=== PATIENT | female | born 1995 | race African-American/Black ===

== ENCOUNTER 2017-03-16 14:59 | Emergency (ER) | payer BC ==
[~2017-03-16] VITALS: Ht 167.6 cm; Wt 74.8 kg
[2017-03-16 15:10] VITALS: BP 150/75
[2017-03-16 15:27] LABS: BILIRUBIN,URINE NEGATIVE (NEG); GLUCOSE,URINE NEGATIVE (NEG); NITRITE,URINE NEGATIVE (NEG); PROTEIN,URINE NEGATIVE (NEG-TRACE)
[2017-03-16] MEDS ORDERED: ACETAMINOPHEN 500 MG TABLET PO ONE (15:30)
--- NOTE | 2017-03-16 15:34 | PHYS DOC ---
Adult General Chief Complaint Chief Complaint: ABDOMINAL PAIN HPI HPI Patient is a 21 year old female who presents with complaint of lower abdominal pain. Patient states that she has had lower abdominal pain over the past 2 weeks. Patient states that she has noticed worsening symptoms over the past 3 days. The patient denies abnormal vaginal discharge however patient does express concern over possible sexually transmitted infection. The patient is currently sexually active with one sexual partner and has had unprotected sexual intercourse within the past week prior to symptoms. She states that she has not had any nausea, vomiting, vaginal discharge. Patient also is concerned about possible . Patient notes mild headache but no other associated symptoms with her abdominal pain. The patient states that the pain is localized just below her bellybutton and denies radiation of pain. Patient has had no associated fevers. Patient states that she has had similar symptoms when she had a bladder infection in the past. The patient does note that over the past 8 months she has been having irregular periods. Patient states that she had a D&C procedure in August 2016 and since her procedure she's had irregular periods. Patient notes that she had vaginal bleeding approximately one week ago that lasted only 2 days. Review of Systems Review of Systems Constitutional: Denies fever or chills [] Eyes: Denies change in visual acuity, redness, or eye pain [] HENT: Denies nasal congestion or sore throat [] Respiratory: Denies cough or shortness of breath [] Cardiovascular: Denies chest pain or edema [] GI: Abdominal pain, denies nausea, vomiting, bloody stools or diarrhea [] : Denies dysuria or hematuria [] Musculoskeletal: Denies back pain or joint pain [] Integument: Denies rash or skin lesions [] Neurologic: Headache, denies focal weakness or sensory changes [] Current Medications Current Medications Current Medications Medications (Trade) Dose Ordered Sig/[facility] Start Time Stop Time Status Last Admin Dose Admin Acetaminophen (Tylenol) 1,000 mg 1X ONCE 03/16/17 15:30 03/16/17 15:32 DC 03/16/17 15:43 1,000 MG Allergies Allergies Allergies Coded Allergies Type Severity Reaction Last Updated Verified No Known Drug Allergies 03/16/17 No Physical Exam Physical Exam Constitutional: Well developed, well nourished, no acute distress, non-toxic appearance. [] HENT: Normocephalic, atraumatic, bilateral external ears normal, oropharynx moist, no oral exudates, nose normal. [] Eyes: PERRLA, EOMI, conjunctiva normal, no discharge. [] Neck: Normal range of motion, no tenderness, supple, no stridor. [] Cardiovascular:Heart rate regular rhythm, no murmur [] Lungs & Thorax: Bilateral breath sounds clear to auscultation [] Abdomen: Bowel sounds normal, soft, mild suprapubic tenderness to palpation, no guarding or rebound tenderness, no masses, no pulsatile masses. Pelvic: Normal external exam, normal appearing vaginal mucus, no cervical motion tenderness, mild midline tenderness on bimanual exam, no adnexal tenderness [] Skin: Warm, dry, no erythema, no rash. [] Back: No tenderness, no CVA tenderness. [] Extremities: No tenderness, no cyanosis, no clubbing, ROM intact, no edema. [] Neurologic: Alert and oriented X 3, normal motor function, normal sensory function, no focal deficits noted. [] Current Patient Data Vital Signs Vital Signs Date Time Temp Pulse Resp B/P (MAP) Pulse Ox O2 Delivery O2 Flow Rate FiO2 03/16/17 15:10 98.4 20 150/75 (100) Room Air 98.4 Lab Values Laboratory Tests Test 03/16/17 14:20 03/16/17 15:10 POC Urine HCG, Qualitative Hcg negative (Negative) Urine Collection Type Unknown Urine Color Yellow Urine Clarity Clear Urine pH 7.0 Urine Specific [place] 1.020 Urine Protein Negative mg/dL (NEG-TRACE) Urine Glucose (UA) Negative mg/dL (NEG) Urine Ketones (Stick) Negative mg/dL (NEG) Urine Blood Negative (NEG) Urine Nitrite Negative (NEG) Urine Bilirubin Negative (NEG) Urine Urobilinogen Dipstick 1.0 mg/dL (0.2 mg/dL) Urine Leukocyte Esterase Negative (NEG) Urine RBC 0 /HPF (0-2) Urine WBC 1-4 /HPF (0-4) Urine Squamous Epithelial Cells Many /LPF Urine Bacteria Few /HPF (0-FEW) Urine Mucus Slight /LPF Microbiology 03/16/17 Wet Prep - Final, Complete EKG EKG Not performed [] Radiology/Procedures Radiology/Procedures Not performed [] Course & Med Decision Making Course & Med Decision Making Pertinent Labs and Imaging studies reviewed. (See chart for details) Patient's urinalysis and wet prep were unremarkable. The patient's abdomen is not consistent with an acute surgical belly and patient's symptoms do not appear consistent with ovarian torsion or other acute abdominal/pelvic process. I suspect that the patient's symptoms may be related to menstrual irregularity. I recommended that the patient follow-up with her [employer] in the next 5-7 days for reevaluation. Recommended return to emergency department for any worsening symptoms. Patient voiced understanding and in agreement with treatment plan. Dragon Disclaimer Dragon Disclaimer This electronic medical record was generated, in whole or in part, using a voice recognition dictation system. Departure Departure Impression: Primary Impression: Abdominal pain Disposition: HOME, SELF-CARE Condition: STABLE Referrals: NO PCP (PCP) Patient Instructions: Abdominal Pain, Women Additional Instructions: Follow-up in one week with your [employer] for reevaluation. Return to the emergency department for any worsening symptoms. Problem Qualifiers Primary Impression: Abdominal pain Abdominal location: lower abdomen, unspecified Qualified Codes: R10.30 - Lower abdominal pain, unspecified BEV BOYD MD Mar 16, 2017 15:34
[2017-03-16 15:35] LABS: BACTERIA,URINE FEW /HPF (0-FEW); RBC,URINE 0 /HPF (0-2); SQUAMOUS EPITHELIAL CELL,UR MANY /LPF
== END 2017-03-16 16:06 | disposition home or self-care (01) ==
LOC: ER 14:59
DX: R10.30 Lower abdominal pain, unspecified (principal); R51 Headache
CPT/HCPCS: 81001; 81025; 87491; 87591; 99284; Q0111

== ENCOUNTER 2017-05-12 17:42 | Emergency (ER) | payer BC ==
[2017-05-12 18:08] VITALS: BP 144/73
[2017-05-12] MEDS ORDERED: AMOX875T PO (19:01)
[2017-05-12] MEDS ORDERED: PRED50TA PO (19:01)
[2017-05-12] MEDS ORDERED: IBUP-1060 PO (19:01)
--- NOTE | 2017-05-12 19:01 | PHYS DOC ---
Past Medical History Past Medical History: No Pertinent History Past Surgical History: Other Additional Past Surgical Histo: DNC X2 Alcohol Use: None Drug Use: None Adult General Chief Complaint Chief Complaint: SORE THROAT HPI HPI Patient is a 21 year old female who presents with fever and sore throat for one day. Review of Systems Review of Systems Constitutional: fever Eyes: Denies change in visual acuity, redness, or eye pain [] HENT: sore throat []Denies nasal congestion Respiratory: Denies cough or shortness of breath [] Cardiovascular: No additional information not addressed in HPI [] GI: Denies abdominal pain, nausea, vomiting, bloody stools or diarrhea [] : Denies dysuria or hematuria [] Musculoskeletal: Denies back pain or joint pain [] Integument: Denies rash or skin lesions [] Neurologic: Denies headache, focal weakness or sensory changes [] Allergies Allergies Allergies Coded Allergies Type Severity Reaction Last Updated Verified No Known Drug Allergies 03/16/17 No Physical Exam Physical Exam Constitutional: Well developed, well nourished, no acute distress, non-toxic appearance. [] HENT: Normocephalic, atraumatic, bilateral external ears normal, oropharynx moist, no oral exudates, nose normal. [] Eyes: PERRLA, EOMI, conjunctiva normal, no discharge. [] Neck: Normal range of motion, no tenderness, supple, no stridor. [] Cardiovascular:Heart rate regular rhythm, no murmur [] Lungs & Thorax: Bilateral breath sounds clear to auscultation [] Abdomen: Bowel sounds normal, soft, no tenderness, no masses, no pulsatile masses. [] Skin: Warm, dry, no erythema, no rash. [] Back: No tenderness, no CVA tenderness. [] Extremities: No tenderness, no cyanosis, no clubbing, ROM intact, no edema. [] Neurologic: Alert and oriented X 3, normal motor function, normal sensory function, no focal deficits noted. [] Psychologic: Affect normal, judgement normal, mood normal. [] Current Patient Data Vital Signs Vital Signs Date Time Temp Pulse Resp B/P (MAP) Pulse Ox O2 Delivery O2 Flow Rate FiO2 05/12/17 18:08 99.4 106 18 98 Room Air 99.4 EKG EKG [] Radiology/Procedures Radiology/Procedures [] Course & Med Decision Making Course & Med Decision Making Pertinent Labs and Imaging studies reviewed. (See chart for details) Patient has acute tonsillitis. We discharged with amoxicillin for 10 days. Tylenol/Motrin for pain or fever. Discharged with prednisone as well. Follow-up with PCP in 1-2 weeks. Ninfa Disclaimer Dragon Disclaimer This electronic medical record was generated, in whole or in part, using a voice recognition dictation system. Departure Departure Impression: Primary Impression: Acute tonsillitis Additional Impression: Fever Disposition: HOME, SELF-CARE Condition: STABLE Referrals: NO PCP (PCP) follow up in one week Patient Instructions: Fever, Adult, [id number], Tonsillitis, [id number] Additional Instructions: You were seen for acute tonsillitis. Take the prescribed medicines as ordered ensure you complete your antibiotics. Use saltwater gargles as well. Follow-up with your doctor in 1-2 weeks. Scripts Ibuprofen (IBUPROFEN) 800 Mg Tablet 800 MG PO PRN Q6HRS Y for INFLAMMATION, #30 TAB Prov: LIBBY LYLES APRN 05/12/17 Prednisone (PREDNISONE) 50 Mg Tablet 1 TAB PO DAILY, #5 TAB Prov: LIBBY LYLES APRN 05/12/17 Amoxicillin (AMOXICILLIN) 875 Mg Tablet 1 TAB PO BID, #20 TAB Prov: LIBBY LYLES APRN 05/12/17 Problem Qualifiers Primary Impression: Acute tonsillitis Pharyngitis/tonsillitis etiology: unspecified etiology Qualified Codes: J03.90 - Acute tonsillitis, unspecified Additional Impression: Fever Fever type: unspecified Qualified Codes: R50.9 - Fever, unspecified LIBBY LYLES APRN May 12, 2017 19:01
[2017-05-13 07:40] LABS: NEGATIVE OBC STREP NEG; POSITIVE OBC STREP POS
== END 2017-05-12 19:03 | disposition home or self-care (01) ==
LOC: ER 17:42
DX: J03.90 Acute tonsillitis, unspecified (principal)
CPT/HCPCS: 87070; 87880; 99283

== ENCOUNTER 2017-06-24 21:49 | Emergency (ER) | payer BC ==
[~2017-06-24] VITALS: Ht 162.6 cm; Wt 74.8 kg
[~2017-06-24 21:49] MED LIST: AMOX875T PO; IBUP-1060 PO; PRED50TA PO
--- NOTE | 2017-06-24 22:03 | PHYS DOC ---
Past Medical History Past Medical History: No Pertinent History Past Surgical History: Other Additional Past Surgical Histo: D&C X2 (At [facility]) Additional Information: Non smoker Alcohol Use: None Drug Use: None Adult General Chief Complaint Chief Complaint: ABDOMINAL PAIN IN HPI HPI Patient is a 21 year old female who presents with vaginal bleeding and cramping. She is a G3, P0, LC0 who presents with vaginal bleeding and cramping. LMP that was normal was in April; she had 2 days of bleeding 05/28-. She performed a home test that was positive. No recent illness. No travel. No urinary complaints. Review of Systems Review of Systems Constitutional: Denies fever or chills Eyes: Denies change in visual acuity, redness, or eye pain HENT: Denies nasal congestion or sore throat Respiratory: Denies cough or shortness of breath Cardiovascular: No chest pain GI: Denies abdominal pain, nausea, vomiting, bloody stools or diarrhea : Denies dysuria or hematuria; POS vaginal bleeding; POS cramping; POS home test Musculoskeletal: Denies back pain or joint pain Integument: Denies rash or skin lesions Neurologic: Denies headache, focal weakness or sensory changes All other systems were reviewed and found to be within normal limits, except as documented in this note. Allergies Allergies Allergies Coded Allergies Type Severity Reaction Last Updated Verified No Known Drug Allergies 03/16/17 No Physical Exam Physical Exam Constitutional: Well developed, well nourished, no acute distress, non-toxic appearance. HENT: Normocephalic, atraumatic, bilateral external ears normal, oropharynx moist, no oral exudates, nose normal. Eyes: PERRLA, EOMI, conjunctiva normal, no discharge. Neck: Normal range of motion, no tenderness, supple, no stridor. Cardiovascular:Heart rate regular rhythm, no murmur Lungs & Thorax: Bilateral breath sounds clear to auscultation Abdomen: Bowel sounds normal, soft, no tenderness, no masses, no pulsatile masses. 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 No blood in vaginal vault. Whitish discharge (culture sent). No cervical motion tenderness; cervical os closed. Skin: Warm, dry, no erythema, no rash. Back: No tenderness, no CVA tenderness. Extremities: No tenderness, no cyanosis, no clubbing, ROM intact, no edema. Neurologic: Alert and oriented X 3, normal motor function, normal sensory function, no focal deficits noted. Psychologic: Affect normal, judgement normal, mood normal. Current Patient Data Vital Signs Vital Signs Date Time Temp Pulse Resp B/P (MAP) Pulse Ox O2 Delivery O2 Flow Rate FiO2 06/24/17 22:40 75 18 137/77 (97) 100 Room Air 06/24/17 21:53 98.9 98.9 Lab Values Laboratory Tests Test 06/24/17 21:52 06/24/17 21:58 06/24/17 22:15 Urine Collection Type Unknown Urine Color Yellow Urine Clarity Clear Urine pH 7.5 Urine Specific [place] 1.025 Urine Protein Negative mg/dL (NEG-TRACE) Urine Glucose (UA) Negative mg/dL (NEG) Urine Ketones (Stick) Negative mg/dL (NEG) Urine Blood Negative (NEG) Urine Nitrite Negative (NEG) Urine Bilirubin Negative (NEG) Urine Urobilinogen Dipstick 1.0 mg/dL (0.2 mg/dL) Urine Leukocyte Esterase Negative (NEG) Urine RBC 0 /HPF (0-2) Urine WBC 1-4 /HPF (0-4) Urine Squamous Epithelial Cells Many /LPF Urine Bacteria Moderate /HPF (0-FEW) Urine Mucus Marked /LPF POC Urine HCG, Qualitative Hcg positive (Negative) White Blood Count 9.7 x10^3/uL (4.0-11.0) Red Blood Count 4.18 x10^6/uL (3.50-5.40) Hemoglobin 11.7 g/dL (12.0-15.5) L Hematocrit 35.1 % (36.0-47.0) L Mean Corpuscular Volume 84 fL (79-100) Mean Corpuscular Hemoglobin 28 pg (25-35) Mean Corpuscular Hemoglobin Concent 33 g/dL (31-37) Red Cell Distribution Width 12.6 % (11.5-14.5) Platelet Count 185 x10^3/uL (140-400) Neutrophils (%) (Auto) 66 % (31-73) Lymphocytes (%) (Auto) 23 % (24-48) L Monocytes (%) (Auto) 6 % (0-9) Eosinophils (%) (Auto) 4 % (0-3) H Basophils (%) (Auto) 1 % (0-3) Neutrophils # (Auto) 6.4 x10^3uL (1.8-7.7) Lymphocytes # (Auto) 2.2 x10^3/uL (1.0-4.8) Monocytes # (Auto) 0.6 x10^3/uL (0.0-1.1) Eosinophils # (Auto) 0.4 x10^3/uL (0.0-0.7) Basophils # (Auto) 0.1 x10^3/uL (0.0-0.2) Maternal Serum HCG Beta Subunit 96 mIU/mL (0-5) H Laboratory Tests 06/24/17 22:15 Radiology/Procedures Radiology/Procedures [facility] [address] [place] [address] IMAGING REPORT Signed PATIENT: EMELYN SULTANA ACCOUNT: [id number] : 1995 LOCATION: ER AGE: 21 SEX: F EXAM STATUS: REG ER ORD. PHYSICIAN: SYED SHRESTHA MD REASON: vag bleeding in ; LMP Sept PROCEDURE: OB <14 WKS W/TV First trimester OB ultrasound dated 06/24/2017. No comparison available. Clinical indication: Vaginal bleeding for 12 hours. FINDINGS: Transabdominal and transvaginal imaging performed. No gestational sac or pole within the endometrial canal. Endometrial thickness is estimated at about 7 mm. Right ovary measures 2.8 x 1.6 x 1.6 cm. Left ovary measures 3.7 x 3.2 x 2.3 cm. Probable corpus luteum cyst at the left ovary measuring 2.4 cm. No adnexal mass or free fluid. IMPRESSION: 1. No evidence of gestational sac or pole at this time. Consider very early gestation or demise. Recommend correlation with beta-hCG values. 2. Probable corpus luteum cyst at the left ovary. 3. No free fluid. Electronically signed by: Jim Hodgson MD (06/24/2017 11:07 PM) [facility] DICTATED and SIGNED BY: JIM HODGSON MD DATE: 06/24/17 [id number] CC: SYED SHRESTHA MD; NO PCP ~ Course & Med Decision Making Course & Med Decision Making Evaluated Patient. No blood type documented here. Lab drawn and US ordered. At 2315 PM: US report back: concerning for demise. Referral to OB for follow up. Needs repeat Quant HCG and US. Blood type O positive. Differential includes: miscarriage; ectopic; ; dysfunctional uterine bleeding; UTI. I have spoken with the patient and/or caregivers. I have explained the patient' s condition, diagnosis and treatment plan based on the information available to me at this time. I have answered the patient's and/or caregiver's questions and addressed any concerns. The patient and/or caregivers have as good an understanding of the patient's diagnosis, condition and treatment plan as can be expected at this point. The patient's condition is stable and appropriate for discharge from the emergency department. The patient will pursue further outpatient evaluation with the primary care physician or other designated or consulting physician as outlined in the discharge instructions. The patient and/or caregivers are agreeable to this plan of care and follow-up instructions have been explained in detail. The patient and/or caregivers have received these instructions in written format and have expressed an understanding of the discharge instructions. The patient and/or caregivers are aware that any significant change in condition or worsening of symptoms should prompt an immediate return to this or the closest emergency department or a call to 911. Dragon Disclaimer Dragon Disclaimer This electronic medical record was generated, in whole or in part, using a voice recognition dictation system. Departure Departure Impression: Primary Impression: Threatened in first trimester Disposition: 01 HOME, SELF-CARE Referrals: NO PCP (PCP) SARA BALL Jr, MD Patient Instructions: Threatened Miscarriage Additional Instructions: YOUR QUANTITATIVE HCG WAS 96. YOUR US SHOWED NOTHING IN THE UTERUS. YOUR BLOOD TYPE IS O POSITIVE. YOU NEED A REPEAT HCG HORMONE LEVEL. CALL THE OB TO SET UP A FOLLOW UP APPT. SYED SHRESTHA MD Jun 24, 2017 22:03
[2017-06-24 22:22] LABS: BILIRUBIN,URINE NEGATIVE (NEG); GLUCOSE,URINE NEGATIVE (NEG); NITRITE,URINE NEGATIVE (NEG); PH,URINE 7.5; PROTEIN,URINE NEGATIVE (NEG-TRACE)
[2017-06-24 22:28] LABS: BASO # 0.1 x10^3/uL (0.0-0.2); BASO % 1 % (0-3); EOS % 4 % (0-3); HEMATOCRIT 35.1 % (36.0-47.0); HEMOGLOBIN 11.7 g/dL (12.0-15.5); LYMPH # 2.2 x10^3/uL (1.0-4.8); LYMPH % 23 % (24-48); MEAN CORPUSCULAR HEMOGLOBIN 28 pg (25-35); MEAN CORPUSCULAR HGB CONC 33 g/dL (31-37); MEAN CORPUSCULAR VOLUME 84 fL (79-100); MONO % 6 % (0-9); NEUT % 66 % (31-73); PLATELET COUNT 185 x10^3/uL (140-400); RED BLOOD COUNT 4.18 x10^6/uL (3.50-5.40); RED CELL DISTRIBUTION WIDTH 12.6 % (11.5-14.5); WHITE BLOOD COUNT 9.7 x10^3/uL (4.0-11.0)
[2017-06-24 22:36] LABS: BACTERIA,URINE MODERATE /HPF (0-FEW); RBC,URINE 0 /HPF (0-2); SQUAMOUS EPITHELIAL CELL,UR MANY /LPF
[2017-06-24 23:01] VITALS: BP 122/64
--- NOTE | 2017-06-24 23:10 | RAD ---
First trimester OB ultrasound dated 06/24/2017. No comparison available. Clinical indication: Vaginal bleeding for 12 hours. FINDINGS: Transabdominal and transvaginal imaging performed. No gestational sac or pole within the endometrial canal. Endometrial thickness is estimated at about 7 mm. Right ovary measures 2.8 x 1.6 x 1.6 cm. Left ovary measures 3.7 x 3.2 x 2.3 cm. Probable corpus luteum cyst at the left ovary measuring 2.4 cm. No adnexal mass or free fluid. IMPRESSION: 1. No evidence of gestational sac or pole at this time. Consider very early gestation or demise. Recommend correlation with beta-hCG values. 2. Probable corpus luteum cyst at the left ovary. 3. No free fluid. Electronically signed by: Jim Hodgson MD (06/24/2017 11:07 PM) [facility]
== END 2017-06-24 23:28 | disposition home or self-care (01) ==
LOC: ER 21:49
DX: O20.0 Threatened abortion (principal); Z3A.00 Weeks of gestation of pregnancy not specified
CPT/HCPCS: 36415; 76801; 76817; 81001; 81025; 84702; 85025; 86900; 86901; 87086; 99285-25

== ENCOUNTER 2020-12-30 07:55 | Emergency (ER) | payer BC, OTHER ==
[~2020-12-30] VITALS: Ht 160 cm; Wt 68.1 kg
[2020-12-30 08:10] VITALS: BP 134/63
[2020-12-30 08:18] LABS: BILIRUBIN,URINE NEGATIVE (NEG); CLARITY,URINE CLEAR; COLOR,URINE YELLOW; NITRITE,URINE NEGATIVE (NEG); PH,URINE 7.5 (<5.0-8.0); PROTEIN,URINE NEGATIVE (NEG-TRACE); UROBILINOGEN,URINE 0.2 mg/dL (0.2 mg/dL)
[2020-12-30 08:31] LABS: BACTERIA,URINE FEW /HPF (0-FEW)
[2020-12-30] MEDS ORDERED: NITR100C62 PO (08:39)
[2020-12-30] MEDS ORDERED: PHEN-444 PO (08:39)
--- NOTE | 2020-12-30 08:41 | PHYS DOC ---
Past Medical History Past Medical History: Other Additional Past Medical Histor: HEART MURMUR Past Surgical History: Other Additional Past Surgical Histo: D&C X2 (At [facility]) Smoking Status: Current Every Day Smoker Alcohol Use: None Drug Use: None General Adult EDM: Chief Complaint: ABDOMINAL PAIN HPI: HPI: 25-year-old -[place] female with no significant past medical history presents the ED with complaints of lower abdominal/pelvic pain and low back pain stating " I getto pee a lot and when I do I only get out a little. When I think I am done, I have to keep going." Her mother told her to drink lots of water and cranberry juice-that we will fix it. History of a UTI when she was a kid but does not recall any symptoms. Denies any abnormal vaginal bleeding, disc harge, itching or irritation. No associated rash. LMP was second week of November. Review of Systems: Review of Systems: Constitutional: Denies fever or chills. [] Eyes: Denies change in visual acuity. [] HENT: Denies nasal congestion or sore throat. [] Respiratory: Denies cough or shortness of breath. [] Cardiovascular: Denies chest pain or edema. [] GI: Denies nausea, vomiting, : Denies vaginal bleeding, hematuria or flank pain Musculoskeletal: Denies back pain or joint pain. [] Integument: Denies rash or diaphoresis Neurologic: Denies headache, focal weakness or sensory changes. [] Endocrine: Denies polyuria or polydipsia. [] Lymphatic: Denies swollen glands. [] Psychiatric: Denies depression or anxiety. [] Heart Score: C/O Chest Pain: No Risk Factors: Risk Factors: DM, Current or recent (<one month) smoker, HTN, HLP, family history of CAD, obesity. Risk Scores: Score 0 - 3: 2.5% MACE over next 6 weeks - Discharge Home Score 4 - 6: 20.3% MACE over next 6 weeks - Admit for Clinical Observation Score 7 - 10: 72.7% MACE over next 6 weeks - Early Invasive Strategies Allergies: Allergies: Allergies Coded Allergies Type Severity Reaction Last Updated Verified No Known Drug Allergies 03/16/17 No Physical Exam: PE: Constitutional: Well developed, well nourished, no acute distress, non-toxic appearance. HENT: Normocephalic, atraumatic, Eyes: EOMI, conjunctiva normal, no discharge. Neck: Normal range of motion, supple, Cardiovascular: S1/2 present, regular rhythm Lungs & Thorax: Speaking in full sentences, bilateral equal chest rise, no tachypnea or increased work of breathing Abdomen: soft, no tenderness, Skin: Warm, dry, no erythema, no rash. [] Back: No tenderness, no CVA tenderness. [] Extremities: No tenderness, no cyanosis, Neurologic: Alert and oriented X 3, no focal deficits noted. [] Psychologic: Affect normal, judgement normal, mood normal. [] Current Patient Data: Labs: Laboratory Tests Test 12/30/20 08:09 Urine Collection Type Unknown Urine Color Yellow Urine Clarity Clear Urine pH 7.5 (<5.0-8.0) Urine Specific [place] 1.020 (1.000-1.030) Urine Protein Negative mg/dL (NEG-TRACE) Urine Glucose (UA) Negative mg/dL (NEG) Urine Ketones (Stick) Negative mg/dL (NEG) Urine Blood Trace (NEG) Urine Nitrite Negative (NEG) Urine Bilirubin Negative (NEG) Urine Urobilinogen Dipstick 0.2 mg/dL (0.2 mg/dL) Urine Leukocyte Esterase Large (NEG) Urine RBC 1-2 /HPF (0-2) Urine WBC 11-20 /HPF (0-4) Urine Squamous Epithelial Cells Few /LPF Urine Bacteria Few /HPF (0-FEW) Vital Signs: Vital Signs Date Time Temp Pulse Resp B/P (MAP) Pulse Ox O2 Delivery O2 Flow Rate FiO2 12/30/20 08:10 97.0 74 16 134/63 (86) 97 Room Air 97.0 EKG: EKG: [] Radiology/Procedures: Radiology/Procedures: [] Course & Med Decision Making: Course & Med Decision Making Pertinent Labs and Imaging studies reviewed. (See chart for details) Urinalysis and symptoms consistent with urinary tract infection, no vaginal discharge/itching/burning. Low suspicion for STI. Recommended 80ounces/water/day, cranberry juice and antibiotics. Will discharge home with strict ED return precautions were given for fever, body aches, flank pain, nausea or vomiting. Encouraged urgent outpatient follow-up with PMD in 7 to 10 days for her urinalysis re-check. Life-threatening processes were considered but are low suspicion at this time, given history, physical exam and ED workup. Pt was educated on all prescription medications and adverse effects. All pat ient's questions were answered and pt was stable at time of discharge. Life/limb-threatening differential includes but is not limited to, ectopic , septic , sepsis/infection (endometritis, sti/pid, cystitis, pyelonephritis, Gabriella's gangrene or necrotizing fasciitis, abscess), ovarian torsion, ruptured hemorrhagic ovarian cyst, endometriosis, ureterolithiasis, thrombophlebitis, hemorrhage/DIC, organ prolapse, abdominal aortic aneurysm, mesenteric ischemia, neoplasm, bowel obstruction or surgical abdomen. I spoken with the patient and her caregivers. I explained the patient's condition, diagnoses and treatment plan based on the information available to me at this time. I have answered the patient and her caregiver's questions and addressed any concerns. The patient and her caregivers have a good understanding of patient's diagnosis, condition and treatment plan as can be expected at this point. Vital signs have been stable. Patient's condition is stable and appropriate for discharge from the emergency department. Patient will pursue further outpatient evaluation with primary care physician or other designated or consulting physician as outlined in the discharge instructions. The patient and/or caregivers are agreeable to this plan of care and follow-up instructions have been explained in detail. The patient and/or caregivers have received these instructions in written form and have expressed an understanding of the discharge instructions. The patient and/or caregivers are aware that any significant change of condition or worsening of symptoms should prompt immediate return to this or the closest emergency department or call to 911. Ninfa Disclaimer: Ninfa Disclaimer: This electronic medical record was generated, in whole or in part, using a voice recognition dictation system. Departure Departure Impression: Primary Impression: UTI (urinary tract infection) Additional Impression: Urinary urgency Disposition: HOME / SELF CARE / HOMELESS Condition: STABLE Referrals: NO PCP (PCP) followup in 7-10 days to repeat U/A or if sxs persist OR FOLLOW UP WITH FAMILY MEDICINE: [id number] [place] [address] Patient Instructions: Urinary Tract Infection Additional Instructions: EMERGENCY DEPARTMENT GENERAL DISCHARGE INSTRUCTIONS Thank you for coming to [facility] Emergency Department (ED) today and trusting us with you care. We trust that you had a positive experience in our Emergency Department. If you wish to speak to the department management, you may call the Director at [phone]. YOUR FOLLOW UP INSTRUCTIONS ARE FOLLOWS: 1. Do you have a private Doctor? If you do not have a private doctor, please ask for a resource list of physicians or clinics that may be able to assist you with follow up care. 2. The Emergency Physicain has interpreted your x-rays. The X-Ray specialist will also review them. If there is a change in the findings, you will be notified in 48 hours when at all possible. 3. A lab test or culture has been done, your results will be reviewed and you will be notified if you need a change in treatment. ADDITIONAL INSTRUCTIONS AND INFORMATION: 1. Your care today has been supervised by a physician who is specially trained in emergency care. Many problems require more than one evaluation for a complete diagnosis and treatment. We recommend that you schedule your follow up appointment as recommended to ensure complete treatment of you illness or injury. If you are unable to obtain follow up care and continue to have a problem, or if your condition worsens, we recommend that you return to the ED. 2. We are not able to safely determine your condition over the phone nor are we able to give sound medical advice over the phone. For these safety reasons, if you call for medical advice we will ask you to come to the ED for further evaluation. 3. If you have any questions regarding these discharge instructions please call the ED at [phone]. SAFETY INFORMATION: In the interest of safety, wellness, and injury prevention; we encourage you to wear your sealbelt, if you smoke; quite smoking, and we encourage family to use a prote ctive helmet for bicycling and other sporting events that present an increased risk for head injury. IF YOUR SYMPTOMS WORSEN OR NEW SYMPTOMS DEVELOP, OR YOU HAVE CONCERNS ABOUT YOUR CONDITION; OR IF YOUR CONDITION WORSENS WHILE YOU ARE WAITING FOR YOUR FOLLOW UP APPOINTMENT; EITHER CONTACT YOUR PRIMARY CARE DOCTOR, THE PHYSICIAN WHOSE NAME AND NUMBER YOU WERE GIVEN, OR RETURN TO THE ED IMMEDIATELY. Scripts Phenazopyridine Hcl (PHENAZOPYRIDINE HCL) 200 Mg Tablet 1 TAB PO TID for urinary discomfort for 2 Days, #6 TAB 0 Refills after food Prov: JOHNATHAN LOONEY DO 12/30/20 Nitrofurantoin Monohyd/M-Cryst (MACROBID 100 MG CAPSULE) 100 Mg Capsule 1 CAP PO BID for 7 Days, #14 CAP 0 Refills Prov: JOHNATHAN LOONEY DO 12/30/20 JOHNATHAN LOONEY DO December 30, 2020 08:41
== END 2020-12-30 09:14 | disposition home or self-care (01) ==
LOC: ER 07:55
DX: N39.0 Urinary tract infection, site not specified (principal); R39.15 Urgency of urination; F17.200 Nicotine dependence, unspecified, uncomplicated
CPT/HCPCS: 81001; 81025; 87086; 99283

== ENCOUNTER 2021-07-23 06:57 | Emergency (ER) | payer OTHER ==
[~2021-07-23] VITALS: Ht 160 cm; Wt 60.1 kg
[~2021-07-23 06:57] MED LIST changes: +NITR100C62 PO; +PHEN-444 PO
[2021-07-23 07:30] LABS: BILIRUBIN,URINE NEGATIVE (NEG); CLARITY,URINE CLEAR; COLOR,URINE YELLOW; NITRITE,URINE NEGATIVE (NEG); PH,URINE 6.5 (<5.0-8.0); PROTEIN,URINE NEGATIVE (NEG-TRACE)
--- NOTE | 2021-07-23 07:43 | PHYS DOC ---
Past Medical History Past Medical History: Other Additional Past Medical Histor: HEART MURMUR Past Surgical History: Other Additional Past Surgical Histo: D&C X2 (At [facility]) Smoking Status: Current Every Day Smoker Alcohol Use: None Drug Use: None General Adult EDM: Chief Complaint: ABDOMINAL PAIN HPI: HPI: Patient is a 25 year old female without pertinent past medical who presents with multiple complaints. For approximately 4 days has had body aches, headaches, nausea, diarrhea. Patient states she has had approximately 3 loose stools in the past 2 days which is unusual for her. 1 episode of vomiting yesterday. No vomiting today. States that she has had chills but has not measured her temperature. Partially vaccinated against Covid with 1 dose of Pfizer. 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 Has not been tested for Covid since symptom onset. Denies any severe abdominal pain. Denies dysuria, but does endorse increased frequency and urgency. Unsure whether she could be . Denies any symptoms of STI such as discharge. Review of Systems: Review of Systems: Constitutional: Reports subjective fever and chills Eyes: Denies change in visual acuity. [] HENT: Denies nasal congestion or sore throat. [] Respiratory: Denies cough or shortness of breath. [] Cardiovascular: Denies chest pain or edema. [] GI: Denies abdominal pain. Reports nausea, vomiting, diarrhea. : Denies dysuria. Reports urgency and frequency. [] Musculoskeletal: Reports muscle aches/body aches. Denies back pain or joint pain. [] Integument: Denies rash. [] Neurologic: Reports headache. Denies focal weakness or sensory changes. [] Psychiatric: Denies depression or anxiety. [] Heart Score: C/O Chest Pain: No Risk Factors: Risk Factors: DM, Current or recent (<one month) smoker, HTN, HLP, family history of CAD, obesity. Risk Scores: Score 0 - 3: 2.5% MACE over next 6 weeks - Discharge Home Score 4 - 6: 20.3% MACE over next 6 weeks - Admit for Clinical Observation Score 7 - 10: 72.7% MACE over next 6 weeks - Early Invasive Strategies Allergies: Allergies: Allergies Coded Allergies Type Severity Reaction Last Updated Verified No Known Drug Allergies 03/16/17 No Physical Exam: PE: Constitutional: Well developed, well nourished, no acute distress, non-toxic appearance. Well-appearing. [] HENT: Normocephalic, atraumatic, moist mucosal surfaces Neck: Normal range of motion, no tenderness, supple, no stridor. [] Cardiovascular:Heart rate regular rhythm Lungs & Thorax: Bilateral breath sounds clear to auscultation [] Abdomen: Soft, nontender. No guarding. Benign abdominal exam. Skin: Warm, dry, no erythema, no rash. [] Back: No tenderness, no CVA tenderness. [] Extremities: No tenderness, no cyanosis, no clubbing, ROM intact, no edema. [] Neurologic: Alert and oriented X 3, normal motor function, normal sensory function, no focal deficits noted. [] Psychologic: Affect normal, judgement normal, mood normal. [] Current Patient Data: Labs: Laboratory Tests Test 07/23/21 07:21 POC Urine HCG, Qualitative Hcg negative (Negative) Vital Signs: Vital Signs Date Time Temp Pulse Resp B/P (MAP) Pulse Ox O2 Delivery O2 Flow Rate FiO2 07/23/21 07:22 98.3 63 16 146/73 (97) 100 Room Air 98.3 EKG: EKG: [] Radiology/Procedures: Radiology/Procedures: [] Course & Med Decision Making: Course & Med Decision Making Pertinent Labs and Imaging studies reviewed. (See chart for details) Patient is an otherwise healthy 25-year-old female presents with 4 days of body aches, subjective chills, nausea, one episode of vomiting, diarrhea, and headac he. On arrival is afebrile, hemodynamically stable. Well-appearing on exam. Nonfocal auscultatory exam, satting well on room air. No evidence of pneumonia. Considered viral etiology such as Covid, influenza, versus other GI viral illness. Covid and influenza swab sent. She does endorse some urinary frequency and urgency, will check UA as well as test. Her abdominal exam is entirely benign, do not feel that she requires any abdominal imaging to evaluate for acute surgical process. No evidence of meningitis/meningismus/nuchal rigidity. Per history has not had significant volume losses, do not feel that a metabolic panel would be helpful. She appears well-hydrated, does not require IV rehydration. We will provide symptomatic treatment with Tylenol, ibuprofen, Zofran. 0743 UA clear. Preg negative. Rapid COVID and flu pending. COVID PCR pending. Headache much improved. Continues to be well appearing. Safe for DC. Advised continued isolation until COVID PCR is available. Return precautions discussed. [id number] Ninfa Disclaimer: Ninfa Disclaimer: This electronic medical record was generated, in whole or in part, using a voice recognition dictation system. Departure Departure Impression: Primary Impression: Nausea vomiting and diarrhea Disposition: HOME / SELF CARE / HOMELESS Condition: STABLE Referrals: NO PCP (PCP) Additional Instructions: Your rapid Covid and influenza test were negative. Your Covid PCR test is pending, and this is the most accurate test. Please self isolate until you have the results of this test. You will be called for positive, but you may not be called for negative. If you have not heard the results of your test in 24 hours you can call the emergency department for your test results. If they do return positive you will need to self isolate for 10 days since your symptom onset and have a minimum of 72 hours without fever and with improving symptoms. Your urine test was negative. You did not have evidence of urinary tract infection If your symptoms change and you develop high fevers, severe abdominal pain, chest pain, shortness of breath, or other new/concerning symptoms please return to the emergency department for reevaluation. CAMDEN FLOYD MD Jul 23, 2021 07:43
[2021-07-23] MEDS ORDERED: ACETAMINOPHEN 500 MG TABLET PO ONE (07:45)
[2021-07-23] MEDS ORDERED: IBUPROFEN 200 MG TABLET. PO ONE (07:45)
[2021-07-23 07:46] LABS: BACTERIA,URINE 0 /HPF (0-FEW); RBC,URINE 0 /HPF (0-2); WBC,URINE OCC /HPF (0-4)
[2021-07-23 08:16] LABS: INFLUENZA A PATIENT NEGATIVE (NEGATIVE); INFLUENZA B PATIENT NEGATIVE (NEGATIVE)
[2021-07-23 08:42] VITALS: BP 136/72
--- NOTE | 2021-07-24 09:18 | NUR ---
Informed patient of tet results. Patient is wanting a copy of results through medical records for work.
== END 2021-07-23 08:43 | disposition home or self-care (01) ==
LOC: ER 06:57
DX: R11.2 Nausea with vomiting, unspecified (principal); Z20.822 Contact with and (suspected) exposure to COVID-19; R19.7 Diarrhea, unspecified; R51.9 Headache, unspecified; R10.9 Unspecified abdominal pain; F17.200 Nicotine dependence, unspecified, uncomplicated
CPT/HCPCS: 81001; 81025; 87086; 87426; 87804; 99283; U0003; U0005

== ENCOUNTER 2021-10-30 10:14 | Emergency (ER) | payer OTHER ==
[~2021-10-30] VITALS: Ht 161.3 cm; Wt 57.8 kg
--- NOTE | 2021-10-30 10:42 | PHYS DOC ---
Past Medical History Past Medical History: Other Additional Past Medical Histor: HEART MURMUR Past Surgical History: Other Additional Past Surgical Histo: D&C X2 (At [facility]), right knee, right arm Smoking Status: Never Smoker Alcohol Use: None Drug Use: None General Adult EDM: Chief Complaint: ABDOMINAL PAIN HPI: HPI: Patient is a 26 year old female who presents here with fevers, chills, right flank pain, right upper quad abdominal pain, nausea and vomiting. She reports that symptoms have progressively worsened the last few days. She does report some urinary urgency, denies vaginal discharge or bleeding. Denies lower abdominal pain or pelvic pain. She denies rash. She denies chest pain, cough, dyspnea. She denies bowel habit changes. She is sexually active with one male partner, but they recently broke up, she had concerned that he might of been cheating on her. No previous history of STI. Review of Systems: Review of Systems: Constitutional: Fever, chills HENT: Denies nasal congestion or sore throat. [] Respiratory: Denies cough or shortness of breath. [] Cardiovascular: Denies chest pain or edema. [] GI: Right upper quadrant abdominal pain, right flank pain, nausea and vomiting. Denies bowel habit changes : Urinary urgency, frequency. No gross hematuria or dysuria reported. No pelvic pain or vaginal discharge or bleeding reported. Musculoskeletal: Right flank pain. Integument: Denies rash. [] Neurologic: Denies headache, focal weakness or sensory changes. [] Psychiatric: Denies depression or anxiety. [] Heart Score: C/O Chest Pain: No Risk Factors: Risk Factors: DM, Current or recent (<one month) smoker, HTN, HLP, family history of CAD, obesity. Risk Scores: Score 0 - 3: 2.5% MACE over next 6 weeks - Discharge Home Score 4 - 6: 20.3% MACE over next 6 weeks - Admit for Clinical Observation Score 7 - 10: 72.7% MACE over next 6 weeks - Early Invasive Strategies Allergies: Allergies: Allergies Coded Allergies Type Severity Reaction Last Updated Verified No Known Drug Allergies 10/30/21 No Physical Exam: PE: Constitutional: Well developed, well nourished, appears uncomfortable, mild distress secondary to pain, nontoxic HENT: Normocephalic, atraumatic, oropharynx is patent and clear, mucous members are moist Eyes: Conjunctiva normal, no discharge. Sclera are clear and anicteric. Neck: Normal range of motion, no tenderness, supple, no stridor. No meningismus. Cardiovascular: Tachycardic, regular, +2 radial +2 posterior tibial pulses bilaterally Lungs & Thorax: Lungs are clear to auscultation bilaterally that rales, rhonchi or wheezes. Equal chest rise. Abdomen: Abdomen is soft, nondistended, right upper quadrant tenderness to palpation, right CVA tenderness. No rash. No flank abdominal ecchymoses. Mild epigastric tenderness. No lower abdominal tenderness. Negative Garcia's. Voluntary guarding, no rigidity. Skin: Warm, dry, no erythema, no rash. No jaundice. Back: Right CVA tenderness. No midline tenderness or step-offs Extremities: No tenderness, no cyanosis, no clubbing, ROM intact, no edema. [] Neurologic: Alert and oriented X 3, normal motor function, normal sensory function, no focal deficits noted. [] Psychologic: Affect normal, judgement normal, mood normal. She is pleasant and cooperative Current Patient Data: Vital Signs: Vital Signs Date Time Temp Pulse Resp B/P (MAP) Pulse Ox O2 Delivery O2 Flow Rate FiO2 10/30/21 10:25 101.1 119 36 160/94 (116) 100 Room Air 101.1 EKG: EKG: [] Radiology/Procedures: Radiology/Procedures: IMAGING REPORT Signed PATIENT: EMELYN SULTANA ACCOUNT: [id number] : 1995 LOCATION: ER AGE: 26 SEX: F EXAM STATUS: REG ER ORD. PHYSICIAN: SYLVIA ROSE DO REASON: RUQ pain PROCEDURE: ABDOMEN LTD EXAM: ULTRASOUND ABDOMEN LIMITED CLINICAL HISTORY: RUQ pain COMPARISON: None available. TECHNIQUE: Limited ultrasound examination of the right upper quadrant of the abdomen was performed. FINDINGS: The head and body of the pancreas are unremarkable. The tail is obscured by in testinal gas.. Liver: 15.5 cm in length. The hepatic margin is smooth and the hepatic echogenicity is normal. There are no focal liver lesions. Flow seen within the portal veins. Biliary: No cholelithiasis. No wall thickening or pericholecystic fluid. There is no pain with direct transducer pressure over the gallbladder. Common bile duct measures 0.3 cm. Right Kidney: 11.2 cm in bipolar length. Normal renal cortical echotexture and thickness. 1.4 symmetric cortical lesion with increased echogenicity. No shadowing renal calculus or hydronephrosis. Visualized portions of the abdominal aorta and inferior vena cava are unremark able. There is no free fluid in the subhepatic space. IMPRESSION: 1. Normal gallbladder. Normal caliber common bile duct. 2. 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 Electronically signed by: Dario Velazquez MD (10/30/2021 12:31 PM) [id number] DICTATED and SIGNED BY: DARIO VELAZQUEZ MD DATE: 10/30/211225 Course & Med Decision Making: Course & Med Decision Making Pertinent Labs and Imaging studies reviewed. (See chart for details) Patient is given IV fluids, IV morphine, IV Zofran, IV Toradol. Temperature is now normal, 98.3, I measured it myself. Tachycardia is now resolved. Blood pressure is stable. She is empirically given a dose of IV Rocephin for treatment of pyelonephritis. I discussed the findings, differential diagnosis and plan of care with her. She understands that urine culture is pending, she should be notified of any need to change antibiotics based on this culture result. Also, her UA demonstrates trichomoniasis, she is given 2 g of p.o. Flagyl for this. I told her to contact her significant other, make sure they are treated as well, she should abstain from sexual activity. Strict return precautions are given. She feels much better, she is comfortable to plan for discharge home. Ninfa Disclaimer: Ninfa Disclaimer: This electronic medical record was generated, in whole or in part, using a voice recognition dictation system. Departure Departure Impression: Primary Impression: Acute pyelonephritis Additional Impression: Trichomoniasis Disposition: 01 HOME / SELF CARE / HOMELESS Condition: STABLE Referrals: NO PCP (PCP) Patient Instructions: Pyelonephritis, Adult, Trichomoniasis Additional Instructions: Take the full course of antibiotics as directed until gone. Your urine culture is pending, and if there is any need to change antibiotics based on the culture results, you should be notified, in about 2 days. Return to the ER immediately for more severe pain, uncontrolled vomiting, dehydration or any other concerns. You may continue to have a fever intermittently until your infection starts to improve. Avoid sexual activity, you may to contact your ex significant other and let them know that they should be treated for trichomonas as well. Follow- up with a primary care physician. Scripts Ciprofloxacin Hcl (CIPROFLOXACIN HCL) 500 Mg Tablet 1 TAB PO BID for 7 Days, #14 TAB Prov: SYLVIA ROSE DO 10/30/21 Hydrocodone Bit/Acetaminophen (HYDROCODONE-APAP 5-325 ) 1 Tab Tablet 1 TAB PO PRN Q6HRS PRN for PAIN, #20 TAB 0 Refills Prov: SYLVIA ROSE DO 10/30/21 Ondansetron Hcl (ONDANSETRON HCL) 4 Mg Tablet 1 TAB PO PRN Q6HRS for nausea and vomiting, #20 TAB 1 Refill Prov: SYLVIA ROSE DO 10/30/21 SYLVIA ROSE DO Oct 30, 2021 10:42
[2021-10-30] MEDS ORDERED: IV NORMAL SALINE 1000ML BAG 1,000 ML IV ONE (11:15)
[2021-10-30] MEDS ORDERED: MORPHINE SULFATE 4 MG/ML INJ. IVP ONE (11:15)
[2021-10-30] MEDS ORDERED: ONDANSETRON PF 4 MG/2 ML VIAL. IVP ONE (11:15)
[2021-10-30 11:20] LABS: BASO % 0 % (0-3); EOS % 0 % (0-3); HEMATOCRIT 36.5 % (36.0-47.0); HEMOGLOBIN 12.2 g/dL (12.0-15.5); LYMPH # 0.7 x10^3/uL (1.0-4.8); LYMPH % 8 % (24-48); MEAN CORPUSCULAR HEMOGLOBIN 28 pg (25-35); MEAN CORPUSCULAR HGB CONC 33 g/dL (31-37); MEAN CORPUSCULAR VOLUME 84 fL (79-100); MONO # 0.7 x10^3/uL (0.0-1.1); MONO % 9 % (0-9); NEUT # 6.7 x10^3/uL (1.8-7.7); NEUT % 83 % (31-73); PLATELET COUNT 154 x10^3/uL (140-400); RED BLOOD COUNT 4.34 x10^6/uL (3.50-5.40); RED CELL DISTRIBUTION WIDTH 12.9 % (11.5-14.5); WHITE BLOOD COUNT 8.1 x10^3/uL (4.0-11.0)
[2021-10-30] MEDS ORDERED: KETOROLAC 15 MG/ML VIAL. IVP ONE (11:30)
[2021-10-30 11:35] LABS: CALCIUM 9.4 mg/dL (8.5-10.1); CREATININE 0.9 mg/dL (0.6-1.0); GFR 91.6; POTASSIUM 3.2 mmol/L (3.5-5.1)
[2021-10-30 11:41] LABS: ALBUMIN 4.2 g/dL (3.4-5.0); TOTAL BILIRUBIN 0.8 mg/dL (0.2-1.0); TOTAL PROTEIN 8.5 g/dL (6.4-8.2)
[2021-10-30 11:42] LABS: RBC,URINE FIELD OBSCURED /HPF (0-2); TRICHOMONAS,URINE PRESENT; WBC,URINE TNTC /HPF (0-4)
[2021-10-30 11:43] LABS: BACTERIA,URINE MODERATE /HPF (0-FEW)
[2021-10-30] MEDS ORDERED: cefTRIAXone IV Push 1 GM VIAL. IVP ONE (12:30)
--- NOTE | 2021-10-30 12:34 | RAD ---
EXAM: ULTRASOUND ABDOMEN LIMITED CLINICAL HISTORY: RUQ pain COMPARISON: None available. TECHNIQUE: Limited ultrasound examination of the right upper quadrant of the abdomen was performed. FINDINGS: The head and body of the pancreas are unremarkable. The tail is obscured by intestinal gas.. Liver: 15.5 cm in length. The hepatic margin is smooth and the hepatic echogenicity is normal. The re are no focal liver lesions. Flow seen within the portal veins. Biliary: No cholelithiasis. No wall thickening or pericholecystic fluid. There is no pain with dire ct transducer pressure over the gallbladder. Common bile duct measures 0.3 cm. Right Kidney: 11.2 cm in bipolar length. Normal renal cortical echotexture and thickness. 1.4 symmetr ic cortical lesion with increased echogenicity. No shadowing renal calculus or hydronephrosis. Visualized portions of the abdominal aorta and inferior vena cava are unremarkable. There is no free fluid in the subhepatic space. IMPRESSION: 1. Normal gallbladder. Normal caliber common bile duct. 2. 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 Electronically signed by: Casa Velazquez MD (10/30/2021 12:31 PM) [id number]
[2021-10-30] MEDS ORDERED: metroNIDAZOLE 500 MG TABLET PO ONE (13:45)
[2021-10-30 13:48] VITALS: BP 132/77
[2021-10-30] MEDS ORDERED: CIPR500T2 PO (13:55)
[2021-10-30] MEDS ORDERED: ONDA-84 PO (13:55)
[2021-10-30] MEDS ORDERED: HYDR-2761 PO (13:55)
== END 2021-10-30 13:59 | disposition home or self-care (01) ==
LOC: ER 10:14
DX: N10 Acute pyelonephritis (principal); A59.9 Trichomoniasis, unspecified
CPT/HCPCS: 36415; 76705; 80053; 81001; 81025; 83690; 85025; 87077; 87086; 87186; 96361; 96374; 96375; 99284; J0696; J1885; J2270; J2405; J7030

== ENCOUNTER 2021-11-27 08:22 | Emergency (ER) | payer OTHER ==
[~2021-11-27] VITALS: Ht 160 cm; Wt 56.8 kg
[~2021-11-27 08:22] MED LIST changes: +CIPR500T2 PO; +HYDR-2761 PO; +ONDA-84 PO
--- NOTE | 2021-11-27 08:59 | PHYS DOC ---
Past Medical History Past Medical History: Other Additional Past Medical Histor: HEART MURMUR Past Surgical History: , Other Additional Past Surgical Histo: D&C X2 (At [facility]), right knee, right arm Smoking Status: Never Smoker Alcohol Use: None Drug Use: None General Adult EDM: Chief Complaint: PELVIC PAIN HPI: HPI: Patient is a 26 year old F who presents to the ED c/o abd pain for a few days worsening last night. Pt had a UTI last month and feels like she may be getting another one. She reports dysuria and frequency. Pt states she has had nausea for a few days and has not eaten much. She reports vomiting that started last night. Pt started her menstrual period today. Pt reports a cough for the last few days. Pt states when she coughs she has pain in her abd. She denies vaginal discharge/vaginal itching. 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 Review of Systems: Review of Systems: Constitutional: Denies fever; Reports chills Eyes: Denies redness or eye pain HENT: Denies nasal congestion or sore throat Respiratory: Denies cough or shortness of breath Cardiovascular: Denies chest pain or palpitations GI: Reports abdominal pain, nausea, or vomiting : Denies hematuria; Reports dysuria and frequency Musculoskeletal: Denies back pain or joint pain Integument: Denies rash or skin lesions Neurologic: Denies headache, focal weakness or sensory changes Complete systems were reviewed and found to be within normal limits, except as documented in this note. Heart Score: C/O Chest Pain: N/A Allergies: Allergies: Allergies Coded Allergies Type Severity Reaction Last Updated Verified No Known Drug Allergies 10/30/21 No Physical Exam: PE: Constitutional: Well developed, well nourished, no acute distress, non-toxic appearance HENT: Normocephalic, atraumatic Eyes: PERRL, EOMI, conjunctiva normal, no discharge Neck: Normal range of motion, no tenderness, supple Lungs & Thorax: No respiratory distress, equal chest rise and fall Abdomen: Soft, RLQ tenderness, non-distended, negative rosvings Skin: Warm, dry, no erythema, no rash Back: No tenderness, no CVA tenderness Extremities: No tenderness, ROM intact, no edema Neurologic: Alert and oriented X 3, normal motor function, normal sensory function, no focal deficits noted Psychologic: Affect normal, judgment normal Current Patient Data: Labs: Laboratory Tests Test 11/27/21 08:36 POC Urine HCG, Qualitative Hcg negative (Negative) Vital Signs: Vital Signs Date Time Temp Pulse Resp B/P (MAP) Pulse Ox O2 Delivery O2 Flow Rate FiO2 11/27/21 08:35 99.1 100 18 150/94 (112) 100 Room Air 99.1 EKG: EKG: [] Radiology/Procedures: Radiology/Procedures: PROCEDURE: PORTABLE CHEST 1V INDICATION: Reason: COUGH / Spl. Instructions: / History: COMPARISON: None. FINDINGS: Single view of chest obtained. No focal airspace consolidation or pulmonary edema. Cardiac silhouette unremarkable. There is some punctate high density foci projecting over the right shoulder region. This could be artifactual in nature or secondary to some debris within the region. IMPRESSION: * No focal airspace consolidation or edema. Electronically signed by: Norberto Gonzáles MD (11/27/2021 10:25 AM) [id number] PROCEDURE: CT ABD PELV W/ IV CONTRST ONLY CT scan of the abdomen and pelvis with contrast 11/27/2021 CLINICAL HISTORY: Right lower quadrant abdominal pain. TECHNIQUE: After the intravenous administration of 75 cc of Omnipaque 300 only, contiguous, 5 mm axial sections were obtained through the abdomen and pelvis. One or more of the following individualized dose reduction techniques were utilized for this study: 1. Automated exposure control. 2. Adjustment of the mA and/or kV according to patient size. 3. Use of iterative reconstruction technique. FINDINGS: Comparison is made to patient's ultrasound of the right upper quadrant abdomen dated 10/30/2021. Images through the lung bases are within normal limits. The liver parenchyma has a decreased attenuation consistent with fatty infiltration. The spleen, pancreas, adrenal glands and left kidney are within normal limits. 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 No further imaging evaluation is recommended. The abdominal aorta tapers normally. The gallbladder is well-distended. No free fluid or free air is seen within the abdomen. Air and stool are seen throughout the colon. The appendix is partially visualized and is within normal limits. Images through the pelvis demonstrate a 1.9 cm collapsing follicle within the left ovary. A small amount of free fluid is seen. Minimal S-shaped curvature of the thoracolumbar spine is noted. IMPRESSION: 1.9 cm collapsing follicle is seen involving the left ovary. A small amount of free fluid is pelvis. No additional acute abnormality is seen. Electronically signed by: Rogelio Morales MD (11/27/2021 9:59 AM) [id number] Course & Med Decision Making: Course & Med Decision Making Pt is a 26 yo F who presents for abd pain UA/UCG ordered Pt given IVF/Toradol/Zofran Pertinent Labs and Imaging studies reviewed. (See chart for details) [] Dragon Disclaimer: Dragon Disclaimer: This electronic medical record was generated, in whole or in part, using a voice recognition dictation system. Departure Departure Impression: Primary Impression: Influenza A Additional Impressions: Abdominal pain Qualified Codes: R10.31 - Right lower quadrant pain Nausea & vomiting Qualified Codes: R11.2 - Nausea with vomiting, unspecified Dehydration Disposition: 01 HOME / SELF CARE / HOMELESS Condition: STABLE Referrals: NO PCP (PCP) Patient Instructions: Abdominal Pain, [id number], Clear Liquid Diet, Sfjy-ty-Okeg, Dehydration, Adult, [id number], Influenza, Adult, [id number], Nausea and Vomiting, Tehl-so-Pokr Scripts Ondansetron (ONDANSETRON ODT) 4 Mg Tab.rapdis 1 TAB PO PRN Q6-8HRS PRN for NAUSEA, #16 TAB Prov: DIEUDONNE PADILLA DO 11/27/21 DIEUDONNE PADILLA DO Nov 27, 2021 08:59
[2021-11-27] MEDS ORDERED: IV NORMAL SALINE 1000ML BAG 1,000 ML IV ONE ×2 (09:00→09:45)
[2021-11-27] MEDS ORDERED: ONDANSETRON PF 4 MG/2 ML VIAL. IVP ONE (09:00)
[2021-11-27] MEDS ORDERED: KETOROLAC 15 MG/ML VIAL. IVP ONE (09:00)
[2021-11-27] MEDS ORDERED: IOHEXOL 300 MG/ML 100ML VIAL. IV ONE (09:15)
[2021-11-27 09:19] LABS: BASO % 1 % (0-3); EOS % 0 % (0-3); HEMATOCRIT 38.6 % (36.0-47.0); HEMOGLOBIN 13.1 g/dL (12.0-15.5); LYMPH # 0.7 x10^3/uL (1.0-4.8); LYMPH % 15 % (24-48); MEAN CORPUSCULAR HEMOGLOBIN 28 pg (25-35); MEAN CORPUSCULAR HGB CONC 34 g/dL (31-37); MEAN CORPUSCULAR VOLUME 83 fL (79-100); MONO # 0.5 x10^3/uL (0.0-1.1); MONO % 10 % (0-9); NEUT # 3.6 x10^3/uL (1.8-7.7); NEUT % 75 % (31-73); PLATELET COUNT 134 x10^3/uL (140-400); RED BLOOD COUNT 4.67 x10^6/uL (3.50-5.40); RED CELL DISTRIBUTION WIDTH 12.9 % (11.5-14.5); WHITE BLOOD COUNT 4.8 x10^3/uL (4.0-11.0)
[2021-11-27 09:32] LABS: ALBUMIN 3.8 g/dL (3.4-5.0); ALBUMIN/GLOBULIN RATIO 0.8 (1.0-1.7); CREATININE 0.9 mg/dL (0.6-1.0); GFR 91.6; MAGNESIUM 1.9 mg/dL (1.8-2.4); TOTAL BILIRUBIN 0.5 mg/dL (0.2-1.0); TOTAL PROTEIN 8.4 g/dL (6.4-8.2)
[2021-11-27 09:36] LABS: BACTERIA,URINE MODERATE /HPF (0-FEW)
--- NOTE | 2021-11-27 10:02 | RAD ---
CT scan of the abdomen and pelvis with contrast 11/27/2021 CLINICAL HISTORY: Right lower quadrant abdominal pain. TECHNIQUE: After the intravenous administration of 75 cc of Omnipaque 300 only, contiguous, 5 mm axia l sections were obtained through the abdomen and pelvis. One or more of the following individualized dose reduction techniques were utilized for this study: 1. Automated exposure control. 2. Adjustment of the mA and/or kV according to patient size. 3. Use of iterative reconstruction technique. FINDINGS: Comparison is made to patient's ultrasound of the right upper quadrant abdomen dated 022. Images through the lung bases are within normal limits. The liver parenchyma has a decreased attenuation consistent with fatty infiltration. The spleen, panc reas, adrenal glands and left kidney are within normal limits. A 1.1 cm a angiomyolipoma is seen invo lving the midpole the right kidney, unchanged. No further imaging evaluation is recommended. The abdominal aorta tapers normally. The gallbladder is well-distended. No free fluid or free air is seen within the abdomen. Air and stool are seen throughout the colon. The appendix is partially visua lized and is within normal limits. Images through the pelvis demonstrate a 1.9 cm collapsing follicle within the left ovary. A small cristofer unt of free fluid is seen. Minimal S-shaped curvature of the thoracolumbar spine is noted. IMPRESSION: 1.9 cm collapsing follicle is seen involving the left ovary. A small amount of free fluid is pelvis. No additional acute abnormality is seen. Electronically signed by: Rogelio Morales MD (11/27/2021 9:59 AM) [id number]
--- NOTE | 2021-11-27 10:27 | RAD ---
INDICATION: Reason: COUGH / Spl. Instructions: / History: COMPARISON: None. FINDINGS: Single view of chest obtained. No focal airspace consolidation or pulmonary edema. Cardiac silhouette unremarkable. There is some punctate high density foci projecting over the right shoulder region. This could be art ifactual in nature or secondary to some debris within the region. IMPRESSION: * No focal airspace consolidation or edema. Electronically signed by: Norberto Gonzáles MD (11/27/2021 10:25 AM) [id number]
[2021-11-27 10:40] LABS: INFLUENZA B PATIENT NEGATIVE (NEGATIVE)
[2021-11-27 10:42] LABS: INFLUENZA A PATIENT POSITIVE (NEGATIVE)
[2021-11-27] MEDS ORDERED: DEXAMETHASONE SOD PHOS 4 MG/ML VIAL IVP ONE (11:00)
[2021-11-27] MEDS ORDERED: ONDA4TAB12 PO (11:45)
[2021-11-27 11:51] VITALS: BP 137/76
== END 2021-11-27 12:05 | disposition home or self-care (01) ==
LOC: ER 08:22
DX: R10.31 Right lower quadrant pain (principal); Z20.822 Contact with and (suspected) exposure to COVID-19; R11.2 Nausea with vomiting, unspecified; J10.1 Influenza due to other identified influenza virus with other respiratory manifestations; E86.0 Dehydration
CPT/HCPCS: 36415; 71045; 74177; 80053; 81001; 81025; 83690; 83735; 85025; 87086; 87428; 96361; 96374; 96375; 99285; C9803; J1100; J1885; J2405; J7030; Q9967; U0003